=== PATIENT | male | born 1945 | race Caucasian/White ===

== ENCOUNTER 2017-09-27 12:39 | Inpatient (IN) | payer OTHER, BC ==
[~2017-09-27] VITALS: Ht 182.9 cm; Wt 93.7 kg
[2017-09-27] MEDS ORDERED: MECLIZINE HCL 25 MG TAB PO STA ×2 (12:54→15:25)
[2017-09-27] MEDS ORDERED: SODIUM CHLORIDE 0.9% 500ML 500 ML IV STA (12:54)
--- NOTE | 2017-09-27 13:10 | EMERGENCY ROOM VISIT NOTE ---
History Report prepared by Yin: Anurag Obrien Under the Supervision of: Dr. Stuart Lawson M.D. First contact with patient: 12:52 Chief Complaint: DIZZY Stated Complaint: DIZZY, SWEATING History of Present Illness The patient is a 72 year old male who presents to the Emergency Room with complaints of intermittent weakness, dizziness and diaphoresis beginning a couple days ago. Family reports that the patient had similar symptoms as early as last week. The family reports that during these episodes he appears dizzy and drenched in sweat with a runny nose and weakness. The patient notes that the symptoms become worse with movement. The patient states that he had severe headaches from March to May, and reports he had a cerebellar stroke detected by MRI on August 02. He followed up with his PCP and osteopathic physician, but never met with a neurologist. The patient denies chest pain. The patient reports that he take Meclizine for presumed vertigo. Source of History: patient, family Onset: a couple days ago Position: other (global) Quality: other (dizziness, weakness, diaphoresis) Timing: intermittent Modifying Factors (Worsening): movement Associated Symptoms: No chest pain Note: runny nose Review of Systems See HPI for pertinent positives and negatives. A total of ten systems were reviewed and were otherwise negative. Past Medical & Surgical Medical Problems: (1) Cerebellar stroke (2) Dizziness Social History Smoking Status: Never Smoker Current/Historical Medications Scheduled Acarbose (Precose), 25 MG PO AMPM Aspirin (Aspirin Ec), 81 MG PO QAM Atorvastatin (Lipitor), 80 MG PO QPM Clonazepam (Klonopin), 0.5 MG PO QAM Clopidogrel (Plavix), 75 MG PO QPM Dapagliflozin Propanediol (Farxiga), 5 MG PO QPM Glimepiride (Glimepiride), 2 MG PO AMPM Insulin Glargine (Basaglar Kwikpen), 25 UNITS SC QPM Metformin Hcl (Glucophage), 1,000 MG PO BID Nitroglycerin (Nitrostat), 0.4 MG UT PRN Scheduled PRN Meclizine Hcl (Meclizine Hcl), 1 TAB PO Q8 PRN for Dizziness or Vertigo Allergies Coded Allergies: No Known Allergies (Unverified , 09/27/17) Physical Exam Vital Signs Date Time Temp Pulse Resp B/P (MAP) Pulse Ox O2 Delivery O2 Flow Rate FiO2 09/27/17 18:29 59 16 155/80 97 Room Air 09/27/17 17:00 57 11 165/82 95 Room Air 09/27/17 16:09 57 10 09/27/17 16:01 176/85 09/27/17 15:39 61 17 09/27/17 15:31 168/87 09/27/17 14:32 162/79 09/27/17 14:30 66 20 162/79 99 Room Air 09/27/17 14:09 63 19 09/27/17 14:01 155/86 09/27/17 13:39 61 10 09/27/17 13:31 156/95 09/27/17 13:30 59 16 156/95 94 Room Air 09/27/17 13:17 63 09/27/17 13:14 160/81 09/27/17 12:43 36.6 58 18 160/77 99 Room Air Physical Exam GENERAL: Awake, alert, well-appearing, in no distress HENT: Normocephalic, atraumatic. Mucous membranes are dry. EYES: Normal conjunctiva. Sclera non-icteric. NECK: Supple. No nuchal rigidity. FROM. No JVD. RESPIRATORY: Clear to auscultation. CARDIAC: Regular rate, normal rhythm. Extremities warm and well perfused. Pulses equal. ABDOMEN: Soft, non-distended. No tenderness to palpation. No rebound or guarding. No masses. RECTAL: Deferred. MUSCULOSKELETAL: Chest examination reveals no tenderness. The back is symmetrical on inspection without obvious abnormality. There is no CVA tenderness to palpation. No joint edema. LOWER EXTREMITIES: Calves are equal size bilaterally and non-tender. No edema. No discoloration. NEURO: Normal sensorium. No sensory or motor deficits noted. Normal cerebellar function with cudosn-hq-[id number], alternating palms, rcun-eh-ploa. Mild horizontal nystagmus and vertigo when lying flat SKIN: No rash or jaundice noted. Medical Decision & Procedures ER Provider Diagnostic Interpretation: Radiology results as stated below per my review and radiologist interpretation: CT ANGIOGRAPHY OF THE NECK WITH CONTRAST CLINICAL HISTORY: Vertigo. COMPARISON STUDY: No previous studies for comparison. Technique: CT angiography of the carotid and vertebral arteries was obtained using benchee 320 IV and 3D reconstruction on an independent workstation. NASCET criteria was utilized. A dose lowering technique was utilized adhering to the principles of ALARA. Findings: Lung apices are clear. There is no cervical lymphadenopathy. A few partially calcified prevascular lymph nodes are likely benign. A few small thyroid nodules are noted. There is mild atherosclerotic plaque within the bilateral common carotid, internal carotid and vertebral arteries without significant stenosis within the neck. There is no dissection within these vessels. There is moderate atherosclerotic plaque within the intracranial portion of the right vertebral artery with moderate stenosis. The CT of the head will be reported separately. IMPRESSION: 1. No significant stenosis or dissection within the major vessels of the neck. 2. Moderate stenosis of the intracranial portion of the right vertebral artery. Electronically signed by: Zacarias Montes M.D. 09/27/2017 3:16 PM CHEST ONE VIEW PORTABLE HISTORY: Generalized abdominal pain. COMPARISON: None. FINDINGS: The lungs are clear. Cardiac silhouette is normal in size. No pleural effusions. No pneumothorax. IMPRESSION: No acute process. Electronically signed by: Luther Parmar M.D. 09/27/2017 2:11 PM ANGIOGRAPHY HEAD COMBO CLINICAL HISTORY: 72 years-old Male with . Presents with acute vertigo COMPARISON STUDY: CTA neck of same day TECHNIQUE: Unenhanced axial CT scan of the brain is performed. Subsequently, following the IV administration of 116 cc of Optiray 320, CT angiogram of the brain was performed from the skull base to the vertex. Images are reviewed in the axial, sagittal, and coronal planes. 3-D MIPS images are created and assessed. IV contrast was administered without complication. A dose lowering technique was utilized adhering to the principles of ALARA. CT DOSE: 1279.24 mGy.cm FINDINGS: CT BRAIN: No acute intracranial hemorrhage, midline shift, abnormal extra-axial collections, hydrocephalus or intracranial mass identified. Age-related involutional changes. Cerebral vascular calcifications are noted. Ill-defined low-attenuation about the periventricular white matter suggests chronic microvascular ischemic changes. Focal area of low-attenuation involving the right frontal lobe, 4.0 x 2.9 cm is noted on image 17 series 2 which suggests an area of encephalomalacia. 10 mm area of decreased attenuation about the inferior left lentiform nucleus on image 13 series 2. No calvarial fracture. Trace right mastoid effusion. Left mastoid air cells and bilateral middle ear cavities are generally clear. Mild mucosal thickening about the ethmoid air cells. Soft tissues and orbits appear unremarkable. CT ANGIOGRAM OF THE BRAIN: The imaged bilateral internal carotid arteries are patent. Calcifications are noted involving the cavernous and clinoid segments bilaterally. The bilateral anterior and middle cerebral arteries are also patent. The vertebrobasilar system and posterior cerebral arteries are widely patent. There is no aneurysm, high-grade stenosis, or proximal branch occlusion identified. Dural sinuses appear patent. IMPRESSION: 1. No acute intracranial hemorrhage, midline shift or territorial infarct. 2. No aneurysm, high-grade stenosis, dissection or proximal branch occlusion. 3. Focal area of low-attenuation about the right frontal lobe suggests encephalomalacia from remote infarction. Correlate with prior imaging. 4. 10 mm area of decreased attenuation about the inferior left lentiform nucleus suggests prominent perivascular space or age-indeterminate lacunar infarction. 5. Age-related involutional changes with suggested mild chronic microvascular ischemic changes. The above report was generated using voice recognition software. It may contain grammatical, syntax or spelling errors. Electronically signed by: Kvng Guzman M.D. 09/27/2017 3:10 PM Laboratory Results 09/27/17 13:20 Red Blood Count 4.91, Mean Corpuscular Volume 89.2, Mean Corpuscular Hemoglobin 31.2, Mean Corpuscular Hemoglobin Concent 34.9, Mean Platelet Volume 9.3, Neutrophils (%) (Auto) 80.4, Lymphocytes (%) (Auto) 13.7, Monocytes (%) (Auto) 5.1, Eosinophils (%) (Auto) 0.3, Basophils (%) (Auto) 0.1, Neutrophils # (Auto) 5.62, Lymphocytes # (Auto) 0.96, Monocytes # (Auto) 0.36, Eosinophils # (Auto) 0.02, Basophils # (Auto) 0.01 09/27/17 13:20 Test 09/27/17 13:20 09/27/17 13:36 White Blood Count 7.00 K/uL (4.8-10.8) Red Blood Count 4.91 M/uL (4.7-6.1) Hemoglobin 15.3 g/dL (14.0-18.0) Hematocrit 43.8 % (42-52) Mean Corpuscular Volume 89.2 fL (80-100) Mean Corpuscular Hemoglobin 31.2 pg (25-34) Mean Corpuscular Hemoglobin Concent 34.9 g/dl (32-36) Platelet Count 150 K/uL (130-400) Mean Platelet Volume 9.3 fL (7.4-10.4) Neutrophils (%) (Auto) 80.4 % Lymphocytes (%) (Auto) 13.7 % Monocytes (%) (Auto) 5.1 % Eosinophils (%) (Auto) 0.3 % Basophils (%) (Auto) 0.1 % Neutrophils # (Auto) 5.62 K/uL (1.4-6.5) Lymphocytes # (Auto) 0.96 K/uL (1.2-3.4) Monocytes # (Auto) 0.36 K/uL (0.11-0.59) Eosinophils # (Auto) 0.02 K/uL (0-0.5) Basophils # (Auto) 0.01 K/uL (0-0.2) RDW Standard Deviation 42.7 fL (36.4-46.3) RDW Coefficient of Variation 13.1 % (11.5-14.5) Immature Granulocyte % (Auto) 0.4 % Immature Granulocyte # (Auto) 0.03 K/uL (0.00-0.02) Anion Gap 5.0 mmol/L (3-11) Est Creatinine Clear Calc Drug Dose 87.6 ml/min Estimated GFR () 97.9 Estimated GFR (Non- 84.4 BUN/Creatinine Ratio 13.8 (10-20) Calcium Level 9.0 mg/dl (8.5-10.1) Magnesium Level 1.9 mg/dl (1.8-2.4) Total Bilirubin 0.7 mg/dl (0.2-1) Direct Bilirubin 0.2 mg/dl (0-0.2) Aspartate Amino Transf (AST/SGOT) 15 U/L (15-37) Alanine Aminotransferase (ALT/SGPT) 23 U/L (12-78) Alkaline Phosphatase 60 U/L (45-117) Troponin I < 0.015 ng/ml (0-0.045) Total Protein 7.1 gm/dl (6.4-8.2) Albumin 3.9 gm/dl (3.4-5.0) Lipase 88 U/L (73-393) Urine Color DK YELLOW Urine Appearance CLEAR (CLEAR) Urine pH 5.0 (4.5-7.5) Urine Specific Dickens 1.036 (1.000-1.030) Urine Protein TRACE (NEG) Urine Glucose (UA) 3+ (NEG) Urine Ketones TRACE (NEG) Urine Occult Blood NEG (NEG) Urine Nitrite NEG (NEG) Urine Bilirubin NEG (NEG) Urine Urobilinogen NEG (NEG) Urine Leukocyte Esterase NEG (NEG) Urine WBC (Auto) 1-5 /hpf (0-5) Urine RBC (Auto) 0-4 /hpf (0-4) Urine Hyaline Casts (Auto) 10-30 /lpf (0-5) Urine Epithelial Cells (Auto) 20-30 /lpf (0-5) Urine Bacteria (Auto) NEG (NEG) Laboratory results reviewed by me Medications Administered Medications (Trade) Dose Ordered Sig/Molly Route Start Time Stop Time Status Last Admin Dose Admin Sodium Chloride 500 ml @ 999 mls/hr Q31M STAT IV 09/27/17 12:54 09/27/17 13:24 DC 09/27/17 12:54 999 MLS/HR Meclizine HCl (Antivert Tab) 25 mg NOW STAT PO 09/27/17 12:54 09/27/17 13:04 DC 09/27/17 12:54 25 MG Meclizine HCl (Antivert Tab) 25 mg NOW STAT PO 09/27/17 15:25 09/27/17 15:27 DC 09/27/17 16:14 25 MG Lorazepam (Ativan Inj) 2 mg STK-MED ONCE .ROUTE 09/27/17 18:24 09/27/17 18:25 DC 09/27/17 18:28 1 MG ECG Per My Interpretation Indication: diaphoresis Rate (beats per minute): 58 Rhythm: sinus bradycardia Findings: no acute ischemic change, other (normal axis) Comparison ECG Date: no prior available ED Course 1253: The patient was evaluated in room C2B. A complete history and physical exam was performed. 1350: I updated the patient with results. 1531: I spoke with Dr. Mary Kirk - [facility] Hospitalist. She will reevaluate the patient for admission. Medical Decision I reviewed the patient's past medical history, medications, and the nursing notes as described above. Differential diagnosis: Etiologies such as metabolic, infection, hypo/hyperglycemia, electrolyte abnormalities, cardiac sources, intracerebral event, toxicologic, neurologic, as well as others were entertained. The patient is a 72-year-old gentleman with a past medical history of cerebellar CVA presented emergency department with persistent vertigo over the past several days while visiting [place] from their home town of [place] for the arts vest per hpi. On arrival the patient is in no acute distress, afebrile stable vital signs. He ambulates with a steady gait. He is neurologically intact including normal cerebellar function with [id number]-[id number], alternating palms, lprv-gg-ysnt. However, upon laying flat he begins to exhibit vertiginous symptoms with bilateral horizontal nystagmus. EKG unremarkable. Chest x-ray negative. CTA of the head and neck demonstrate areas of likely old frontal and lacunar infarcts. Patient feeling improved after IV fluids and meclizine, however still with intermittent mild vertigo. Unclear at this time whether the patient is exhibiting symptoms from a new cerebellar stroke versus locus minoris from his prior CVA in the setting of mild dehydration. However given the patient's prior history of CVA in particular cerebellar CVA is reasonable to admit the patient for full stroke rule out. Of note patient reports having to have procedural sedation to undergo MRI in the past. Patient agreeable with admission. Case was discussed with Dr. Mary Kirk, [facility] hospitalist, who will admit the patient for further management. Medication Reconcilliation Current Medication List: was personally reviewed by me Blood Pressure Screening Patient's blood pressure: Elevated blood pressure referred to hospitalist Consults Time Called: 1520 Consulting Physician: Dr. Mary Kirk - [facility] Hospitalist Returned Call: [address] Mary Kirk - [facility] Hospitalist. She will reevaluate the patient for admission. Impression Primary Impression: Vertigo Scribe Attestation The scribe's documentation has been prepared under my direction and personally reviewed by me in its entirety. I confirm that the note above accurately reflects all work, treatment, procedures, and medical decision making performed by me. Departure Information Dispostion Being Evaluated By Hospitalist Patient Instructions My [facility]
[2017-09-27] MEDS ORDERED: OPTIRAY 320 IV PRN (13:30)
[2017-09-27 13:31] LABS: BASO % 0.1 %; BASO ABS # 0.01 K/uL (0-0.2); EOS % 0.3 %; EOS ABS # 0.02 K/uL (0-0.5); HEMATOCRIT 43.8 % (42-52); HEMOGLOBIN 15.3 g/dL (14.0-18.0); IG# 0.03 K/uL (0.00-0.02); LYMPH % 13.7 %; LYMPH ABS # 0.96 K/uL (1.2-3.4); MEAN CELL VOLUME 89.2 fL (80-100); MEAN CORPUSCULAR HEMOGLOBIN 31.2 pg (25-34); MEAN CORPUSCULAR HGB CONC 34.9 g/dl (32-36); MEAN PLATELET VOLUME 9.3 fL (7.4-10.4); MONO % 5.1 %; MONO ABS # 0.36 K/uL (0.11-0.59); NEUT % 80.4 %; NEUT ABS # 5.62 K/uL (1.4-6.5); PLATELET COUNT 150 K/uL (130-400); RED CELL DISTRIBUTION WIDTH CV 13.1 % (11.5-14.5); RED CELL DISTRIBUTION WIDTH SD 42.7 fL (36.4-46.3)
[2017-09-27] MEDS ORDERED: ATOR-26 PO (13:45)
[2017-09-27] MEDS ORDERED: KLN/5 PO (13:45)
[2017-09-27] MEDS ORDERED: GLIM2TAB2 PO (13:45)
[2017-09-27] MEDS ORDERED: ACAR25TA PO (13:45)
[2017-09-27] MEDS ORDERED: METF-384 PO (13:45)
[2017-09-27] MEDS ORDERED: INSU100I23 SC (13:45)
[2017-09-27] MEDS ORDERED: DAPA1TAB8 PO (13:45)
[2017-09-27] MEDS ORDERED: CLOP1TAB15 PO (13:45)
[2017-09-27 13:58] LABS: ALBUMIN 3.9 gm/dl (3.4-5.0); ALKALINE PHOSPHATASE 60 U/L (45-117); ALT/SGPT 23 U/L (12-78); AST/SGOT 15 U/L (15-37); BLOOD UREA NITROGEN 12 mg/dl (7-18); CARBON DIOXIDE 30 mmol/L (21-32); GLUCOSE 142 mg/dl (70-99); LIPASE 88 U/L (73-393); POTASSIUM 4.3 mmol/L (3.5-5.1); SODIUM 142 mmol/L (136-145); TOTAL PROTEIN 7.1 gm/dl (6.4-8.2)
--- NOTE | 2017-09-27 14:12 | DIAGNOSTIC IMAGING REPORT ---
CHEST ONE VIEW PORTABLE HISTORY: Generalized abdominal pain. COMPARISON: None. FINDINGS: The lungs are clear. Cardiac silhouette is normal in size. No pleural effusions. No pneumothorax. IMPRESSION: No acute process. Electronically signed by: Luther Parmar M.D. 09/27/2017 2:11 PM Dictated Date/Time: 09/27/2017 2:09 PM
--- NOTE | 2017-09-27 15:11 | DIAGNOSTIC IMAGING REPORT ---
ANGIOGRAPHY HEAD COMBO CLINICAL HISTORY: 72 years-old Male with . Presents with acute vertigo COMPARISON STUDY: CTA neck of same day TECHNIQUE: Unenhanced axial CT scan of the brain is performed. Subsequently, following the IV administration of 116 cc of Optiray 320, CT angiogram of the brain was performed from the skull base to the vertex. Images are reviewed in the axial, sagittal, and coronal planes. 3-D MIPS images are created and assessed. IV contrast was administered without complication. A dose lowering technique was utilized adhering to the principles of ALARA. CT DOSE: 1279.24 mGy.cm FINDINGS: CT BRAIN: No acute intracranial hemorrhage, midline shift, abnormal extra-axial collections, hydrocephalus or intracranial mass identified. Age-related involutional changes. Cerebral vascular calcifications are noted. Ill-defined low-attenuation about the periventricular white matter suggests chronic microvascular ischemic changes. Focal area of low-attenuation involving the right frontal lobe, 4.0 x 2.9 cm is noted on image 17 series 2 which suggests an area of encephalomalacia. 10 mm area of decreased attenuation about the inferior left lentiform nucleus on image 13 series 2. No calvarial fracture. Trace right mastoid effusion. Left mastoid air cells and bilateral middle ear cavities are generally clear. Mild mucosal thickening about the ethmoid air cells. Soft tissues and orbits appear unremarkable. CT ANGIOGRAM OF THE BRAIN: The imaged bilateral internal carotid arteries are patent. Calcifications are noted involving the cavernous and clinoid segments bilaterally. The bilateral anterior and middle cerebral arteries are also patent. The vertebrobasilar system and posterior cerebral arteries are widely patent. There is no aneurysm, high-grade stenosis, or proximal branch occlusion identified. Dural sinuses appear patent. IMPRESSION: 1. No acute intracranial hemorrhage, midline shift or territorial infarct. 2. No aneurysm, high-grade stenosis, dissection or proximal branch occlusion. 3. Focal area of low-attenuation about the right frontal lobe suggests encephalomalacia from remote infarction. Correlate with prior imaging. 4. 10 mm area of decreased attenuation about the inferior left lentiform nucleus suggests prominent perivascular space or age-indeterminate lacunar infarction. 5. Age-related involutional changes with suggested mild chronic microvascular ischemic changes. The above report was generated using voice recognition software. It may contain grammatical, syntax or spelling errors. Electronically signed by: Kvng Guzman M.D. 09/27/2017 3:10 PM Dictated Date/Time: 09/27/2017 3:01 PM
--- NOTE | 2017-09-27 15:18 | DIAGNOSTIC IMAGING REPORT ---
CT ANGIOGRAPHY OF THE NECK WITH CONTRAST CLINICAL HISTORY: Vertigo. COMPARISON STUDY: No previous studies for comparison. Technique: CT angiography of the carotid and vertebral arteries was obtained using [employer] 320 IV and 3D reconstruction on an independent workstation. NASCET criteria was utilized. A dose lowering technique was utilized adhering to the principles of ALARA. Findings: Lung apices are clear. There is no cervical lymphadenopathy. A few partially calcified prevascular lymph nodes are likely benign. A few small thyroid nodules are noted. There is mild atherosclerotic plaque within the bilateral common carotid, internal carotid and vertebral arteries without significant stenosis within the neck. There is no dissection within these vessels. There is moderate atherosclerotic plaque within the intracranial portion of the right vertebral artery with moderate stenosis. The CT of the head will be reported separately. IMPRESSION: 1. No significant stenosis or dissection within the major vessels of the neck. 2. Moderate stenosis of the intracranial portion of the right vertebral artery. Electronically signed by: Zacarias Montes M.D. 09/27/2017 3:16 PM Dictated Date/Time: 09/27/2017 3:11 PM
[2017-09-27] MEDS ORDERED: NTRGSL/4 UT (16:36)
[2017-09-27] MEDS ORDERED: ASPI81TA28 PO (16:36)
[2017-09-27] MEDS ORDERED: MECL1TAB42 PO (16:36)
--- NOTE | 2017-09-27 17:13 | History and Physical ---
History & Physical Date & Time of Service: Sep 27, 2017 at 16:44 Chief Complaint: Dizzy, Sweating Primary Care Physician: No Doctor, Assigned History of Present Illness Source: patient, family 72 yo male from [place] was visiting [place] for the [employer] [place]. Patient is a poor historian as he switches topics very easily. Patient drove about 170 miles that day. Patient however has been having episodes of dizziness for the past 4 months. He reports that these episodes last about a few seconds. He was diagnosed in July at [facility] with a cerrebellar stroke. However he did not followup with Neurology as an outpatient due to an emergency at home. Patient reports for the past 2 weeks he has been having more severe episodes of dizziness, and notices that this occurs when he moves his head side to side, or if he bends over. His states that he has also been unsteady on his feet. On Monday, he had an episode of diarrhea, nausea, and looked pale. This was after an episode of dizziness. Since then he has had episodes of dizziness have continued which is why patient presented to the ER. ER department is concerned that he may have another stroke which is why they called for an admission. notes that since his stroke, he has had a different personality. Past Medical/Surgical History PMH: Cerebellar stroke in July 2017 Diabetes M. II History of multiple Myocardial infarctions first occurred when he was 54. PSH: History of cholecystectomy. Family History Patient has family history of coronary artery disease in his mother, father, brother. All of them have had Myocardial infarctions However, none were premature. Social History Smoking Status: Never Smoker Smokeless Tobacco Use: No Alcohol Use: none Drug Use: none Marital Status: Housing status: lives with significant other Occupational Status: retired Immunizations History of Influenza Vaccine: Yes History of Tetanus Vaccine?: Yes History of Pneumococcal: Yes History of Hepatitis B Vaccine: Yes Allergies Coded Allergies: No Known Allergies (Unverified , 09/27/17) Home Medications Scheduled Acarbose (Precose), 25 MG PO AMPM Aspirin (Aspirin Ec), 81 MG PO QAM Atorvastatin (Lipitor), 80 MG PO QPM Clonazepam (Klonopin), 0.5 MG PO QAM Clopidogrel (Plavix), 75 MG PO QPM Dapagliflozin Propanediol (Farxiga), 5 MG PO QPM Glimepiride (Glimepiride), 2 MG PO AMPM Insulin Glargine (Basaglar Kwikpen), 25 UNITS SC QPM Metformin Hcl (Glucophage), 1,000 MG PO BID Nitroglycerin (Nitrostat), 0.4 MG UT PRN Scheduled PRN Meclizine Hcl (Meclizine Hcl), 1 TAB PO Q8 PRN for Dizziness or Vertigo Review of Systems Constitutional: No fever, No chills Eyes: No worsening of vision ENT: No hearing loss Respiratory: No cough Cardiovascular: No chest pain Abdomen: No pain Musculoskeletal: No joint pain Genitourinary - Male: No hematuria Neurologic: + vertigo Psychiatric: No depression symptoms Endocrine: No fatigue Hematologic / Lymphatic: No abnormal bleeding/bruising Integumentary: No rash Allergic / Immunologic: No environmental allergies Physical Exam Vital Signs Date Time Temp Pulse Resp B/P (MAP) Pulse Ox O2 Delivery O2 Flow Rate FiO2 09/27/17 16:09 57 10 09/27/17 16:01 176/85 09/27/17 15:39 61 17 09/27/17 15:31 168/87 09/27/17 14:32 162/79 09/27/17 14:30 66 20 162/79 99 Room Air 09/27/17 14:09 63 19 09/27/17 14:01 155/86 09/27/17 13:39 61 10 09/27/17 13:31 156/95 09/27/17 13:30 59 16 156/95 94 Room Air 09/27/17 13:17 63 09/27/17 13:14 160/81 09/27/17 12:43 36.6 58 18 160/77 99 Room Air General Appearance: WD/WN, no apparent distress Head: normocephalic Eyes: normal inspection, + pertinent finding (no nystagmus noted) ENT: normal ENT inspection, hearing grossly normal Neck: supple, no adenopathy Respiratory/Chest: chest non-tender, lungs clear, normal breath sounds Cardiovascular: regular rate, rhythm, no edema Abdomen/GI: normal bowel sounds, non tender, soft Back: normal inspection Extremities/Musculoskelatal: normal inspection Neurologic/Psych: occupational medicine specialist II-XII nml as tested, alert, oriented x 3 Skin: normal color Lymphatic: no adenopathy Diagnostics Laboratory Results Results Past 24 Hours Test 09/27/17 13:20 09/27/17 13:36 Range/Units White Blood Count 7.00 4.8-10.8 K/uL Red Blood Count 4.91 4.7-6.1 M/uL Hemoglobin 15.3 14.0-18.0 g/dL Hematocrit 43.8 42-52 % Mean Corpuscular Volume 89.2 80-100 fL Mean Corpuscular Hemoglobin 31.2 25-34 pg Mean Corpuscular Hemoglobin Concent 34.9 32-36 g/dl Platelet Count 150 130-400 K/uL Mean Platelet Volume 9.3 7.4-10.4 fL Neutrophils (%) (Auto) 80.4 % Lymphocytes (%) (Auto) 13.7 % Monocytes (%) (Auto) 5.1 % Eosinophils (%) (Auto) 0.3 % Basophils (%) (Auto) 0.1 % Neutrophils # (Auto) 5.62 1.4-6.5 K/uL Lymphocytes # (Auto) 0.96 1.2-3.4 K/uL Monocytes # (Auto) 0.36 0.11-0.59 K/uL Eosinophils # (Auto) 0.02 0-0.5 K/uL Basophils # (Auto) 0.01 0-0.2 K/uL RDW Standard Deviation 42.7 36.4-46.3 fL RDW Coefficient of Variation 13.1 11.5-14.5 % Immature Granulocyte % (Auto) 0.4 % Immature Granulocyte # (Auto) 0.03 0.00-0.02 K/uL Sodium Level 142 136-145 mmol/L Potassium Level 4.3 3.5-5.1 mmol/L Chloride Level 107 98-107 mmol/L Carbon Dioxide Level 30 21-32 mmol/L Anion Gap 5.0 3-11 mmol/L Blood Urea Nitrogen 12 7-18 mg/dl Creatinine 0.90 0.60-1.40 mg/dl Est Creatinine Clear Calc Drug Dose 87.6 ml/min Estimated GFR () 97.9 Estimated GFR (Non- 84.4 BUN/Creatinine Ratio 13.8 10-20 Random Glucose 142 70-99 mg/dl Calcium Level 9.0 8.5-10.1 mg/dl Magnesium Level 1.9 1.8-2.4 mg/dl Total Bilirubin 0.7 0.2-1 mg/dl Direct Bilirubin 0.2 0-0.2 mg/dl Aspartate Amino Transf (AST/SGOT) 15 15-37 U/L Alanine Aminotransferase (ALT/SGPT) 23 12-78 U/L Alkaline Phosphatase 60 45-117 U/L Troponin I < 0.015 0-0.045 ng/ml Total Protein 7.1 6.4-8.2 gm/dl Albumin 3.9 3.4-5.0 gm/dl Lipase 88 73-393 U/L Urine Color DK YELLOW Urine Appearance CLEAR CLEAR Urine pH 5.0 4.5-7.5 Urine Specific Webster 1.036 1.000-1.030 Urine Protein TRACE NEG Urine Glucose (UA) 3+ NEG Urine Ketones TRACE NEG Urine Occult Blood NEG NEG Urine Nitrite NEG NEG Urine Bilirubin NEG NEG Urine Urobilinogen NEG NEG Urine Leukocyte Esterase NEG NEG Urine WBC (Auto) 1-5 0-5 /hpf Urine RBC (Auto) 0-4 0-4 /hpf Urine Hyaline Casts (Auto) 10-30 0-5 /lpf Urine Epithelial Cells (Auto) 20-30 0-5 /lpf Urine Bacteria (Auto) NEG NEG ANGIOGRAPHY HEAD COMBO CLINICAL HISTORY: 72 years-old Male with . Presents with acute vertigo COMPARISON STUDY: CTA neck of same day TECHNIQUE: Unenhanced axial CT scan of the brain is performed. Subsequently, following the IV administration of 116 cc of Optiray 320, CT angiogram of the brain was performed from the skull base to the vertex. Images are reviewed in the axial, sagittal, and coronal planes. 3-D MIPS images are created and assessed. IV contrast was administered without complication. A dose lowering technique was utilized adhering to the principles of ALARA. CT DOSE: 1279.24 mGy.cm FINDINGS: CT BRAIN: No acute intracranial hemorrhage, midline shift, abnormal extra-axial collections, hydrocephalus or intracranial mass identified. Age-related involutional changes. Cerebral vascular calcifications are noted. Ill-defined low-attenuation about the periventricular white matter suggests chronic microvascular ischemic changes. Focal area of low-attenuation involving the right frontal lobe, 4.0 x 2.9 cm is noted on image 17 series 2 which suggests an area of encephalomalacia. 10 mm area of decreased attenuation about the inferior left lentiform nucleus on image 13 series 2. No calvarial fracture. Trace right mastoid effusion. Left mastoid air cells and bilateral middle ear cavities are generally clear. Mild mucosal thickening about the ethmoid air cells. Soft tissues and orbits appear unremarkable. CT ANGIOGRAM OF THE BRAIN: The imaged bilateral internal carotid arteries are patent. Calcifications are noted involving the cavernous and clinoid segments bilaterally. The bilateral anterior and middle cerebral arteries are also patent. The vertebrobasilar system and posterior cerebral arteries are widely patent. There is no aneurysm, high-grade stenosis, or proximal branch occlusion identified. Dural sinuses appear patent. IMPRESSION: 1. No acute intracranial hemorrhage, midline shift or territorial infarct. 2. No aneurysm, high-grade stenosis, dissection or proximal branch occlusion. 3. Focal area of low-attenuation about the right frontal lobe suggests encephalomalacia from remote infarction. Correlate with prior imaging. 4. 10 mm area of decreased attenuation about the inferior left lentiform nucleus suggests prominent perivascular space or age-indeterminate lacunar infarction. 5. Age-related involutional changes with suggested mild chronic microvascular ischemic changes. CT ANGIOGRAPHY OF THE NECK WITH CONTRAST CLINICAL HISTORY: Vertigo. COMPARISON STUDY: No previous studies for comparison. Technique: CT angiography of the carotid and vertebral arteries was obtained using OptiraKontagent 320 IV and 3D reconstruction on an independent workstation. NASCET criteria was utilized. A dose lowering technique was utilized adhering to the principles of ALARA. Findings: Lung apices are clear. There is no cervical lymphadenopathy. A few partially calcified prevascular lymph nodes are likely benign. A few small thyroid nodules are noted. There is mild atherosclerotic plaque within the bilateral common carotid, internal carotid and vertebral arteries without significant stenosis within the neck. There is no dissection within these vessels. There is moderate atherosclerotic plaque within the intracranial portion of the right vertebral artery with moderate stenosis. The CT of the head will be reported separately. IMPRESSION: 1. No significant stenosis or dissection within the major vessels of the neck. 2. Moderate stenosis of the intracranial portion of the right vertebral artery. Diagnostic Radiology CHEST ONE VIEW PORTABLE HISTORY: Generalized abdominal pain. COMPARISON: None. FINDINGS: The lungs are clear. Cardiac silhouette is normal in size. No pleural effusions. No pneumothorax. IMPRESSION: No acute process. EKG Sinus bradycardia Low voltage QRS Abnormal ECG No previous ECGs available Confirmed by Juliano Headley ([id number]) on 09/27/2017 4:49:37 PM Impression Assessment and Plan Worsening vertigo and dizziness in a 72 yo male with history fo a stroke just 3 months ago diagnosed at an outside facility. Admit under obs to tele. Will obtain MRI of brain. If cerebellar stroke in past is correct, then this can likely explain his vertigo. Patient also describes symptoms where his they worsened with moving his head. Due to patient being a poor historian, unsure if patient really has worsening or not of his dizziness. It does sound like BPPV can be a strong possibility. Patient will likely benefit from following with Neurology as an outpatient. Due to claustrophobia, will order ativan prior to imaging. Diabetes Mellitus II Will restart his insulin, hold oral meds. Consult glycemic control H/O Coronary artery disease. will restart his meds H/O stroke will restart his home meds. Advanced Directives Existing Advance Directive: No Existing Living Will: No Existing Power of Hospital Sales Representative: No Existing Health Care Proxy: No Resuscitation Status VTE Prophylaxis Will order VTE Prophylaxis: Yes
[2017-09-27] MEDS ORDERED: MECLIZINE HCL 25 MG TAB PO PRN (17:30)
[2017-09-27] MEDS ORDERED: DEXTROSE 50% 50 ML SYR IV PRN (17:30)
[2017-09-27] MEDS ORDERED: GLUCOSE 40% GEL 15 GM TUBE PO PRN (17:30)
[2017-09-27] MEDS ORDERED: GLUCOSE 10 TABS/TUBE PO PRN (17:30)
[2017-09-27] MEDS ORDERED: NITROGLYCERIN 0.4 MG SL PER TAB CHARGE UT SCH (17:30)
[2017-09-27] MEDS ORDERED: GLUCAGON FOR INJ 1 MG VIAL SQ PRN (17:30)
[2017-09-27] MEDS ORDERED: CARBOHYDRATES FOR HYPOGLYCEMIA PO PRN (17:30)
[2017-09-27] MEDS ORDERED: LORAZEPAM 2 MG/ML 1 ML VIAL IV STA (18:19)
[2017-09-27] MEDS ORDERED: LORAZEPAM 2 MG/ML 1 ML VIAL ONE (18:24)
[2017-09-27] MEDS ORDERED: PHARMACY GLYCEMIC MGMT CONSULT PRN (18:25)
--- NOTE | 2017-09-27 19:58 | DIAGNOSTIC IMAGING REPORT ---
BRAIN WITHOUT CONTRAST HISTORY: Mental status change h/o cerebellar stroke/ worsening balance. TECHNIQUE: Multiplanar multisequence MRI of the brain was performed without the use of contrast. COMPARISON STUDY: None. FINDINGS: Old right frontal infarct. Small acute right periventricular infarct involving the right basal ganglia. Moderate chronic small vessel change throughout both cerebral hemispheres. Ventricular system is midline. Increased signal on T1 about the area of acute ischemic change may suggest a small petechial hemorrhagic component. IMPRESSION: 1. Old right frontal infarct. 2. Small right periventricular infarct with a small associated petechial hemorrhagic component. 3. Atrophy and chronic small vessel change of aging. The above report was generated using voice recognition software. It may contain grammatical, syntax or spelling errors. Electronically signed by: Eugene Romeo M.D. 09/27/2017 7:56 PM Dictated Date/Time: 09/27/2017 7:52 PM
[2017-09-27 20:30] VITALS: BP_SYST 142; BP_SYST 155; BP_DIAS 80; BP_DIAS 87; PULSE 62; TEMP 36.5; TEMP 36.6; O2SAT 96; Ht 182.9 cm; Wt 93.7 kg
[2017-09-27] MEDS ORDERED: ATORVASTATIN 40 MG TAB PO SCH (21:00)
[2017-09-27] MEDS ORDERED: CLOPIDOGREL BISULFATE 75 MG TAB PO SCH (21:00)
[2017-09-27] MEDS ORDERED: ENOXAPARIN 40 MG/0.4 ML SYR SC SCH (21:00)
[2017-09-27] MEDS ORDERED: INSULIN GLARGINE SOLOSTAR 100 UNITS/ML 3 ML PEN SC SCH ×2 (21:00)
[2017-09-27 21:07] LABS: PTT PATIENT 27.4 SECONDS (21.0-31.0)
[2017-09-27] MEDS: INSULIN ASPART 100 UNITS/ML 3 ML PEN SC SCH (21:38)
[2017-09-27] MEDS ORDERED: IV FLUIDS COMPLETED PRN (23:00)
[2017-09-27 23:12] VITALS: BP 117/64; PULSE 57; TEMP 36.4; O2SAT 95
[2017-09-28] VITALS (7 sets, daily range): BP systolic 116–133; BP diastolic 51–74; PULSE 53–67; TEMP 36.5–36.8; O2SAT 95–99
[2017-09-28] MEDS: INSULIN ASPART 100 UNITS/ML 3 ML PEN SC SCH ×2 (08:45→12:54)
--- NOTE | 2017-09-28 08:53 | Pharmacy Progress Note ---
Glycemic Control Intl Consult Date of Service Sep 28, 2017. Scope Glycemic Pharmacist consulted by Dr Friedman on 09/27/17 for glycemic control and to write orders per [facility] inpatient glycemic control protocol Objective Weight (Kilograms): 93.700 Accuchecks BSG (last 24hrs): Test 09/27/17 13:20 09/27/17 21:34 09/28/17 07:23 Random Glucose 142 mg/dl (70-99) Bedside Glucose 212 mg/dl (70-99) 132 mg/dl (70-99) Laboratory Data (last 24hrs) Test 09/27/17 13:20 Anion Gap 5.0 mmol/L BUN/Creatinine Ratio 13.8 Blood Urea Nitrogen 12 mg/dl Creatinine 0.90 mg/dl Potassium Level 4.3 mmol/L Sodium Level 142 mmol/L White Blood Count 7.00 K/uL Red Blood Count 4.91 M/uL Hemoglobin 15.3 g/dL Hematocrit 43.8 % Mean Corpuscular Volume 89.2 fL Mean Corpuscular Hemoglobin 31.2 pg Mean Corpuscular Hemoglobin Concent 34.9 g/dl Platelet Count 150 K/uL Mean Platelet Volume 9.3 fL Neutrophils (%) (Auto) 80.4 % Lymphocytes (%) (Auto) 13.7 % Monocytes (%) (Auto) 5.1 % Eosinophils (%) (Auto) 0.3 % Basophils (%) (Auto) 0.1 % Neutrophils # (Auto) 5.62 K/uL Lymphocytes # (Auto) 0.96 K/uL Monocytes # (Auto) 0.36 K/uL Eosinophils # (Auto) 0.02 K/uL Basophils # (Auto) 0.01 K/uL Recent Pertinent Medications Outpatient Anti-diabetic Regimen: * Lantus 25 units HS * Metformin 1 g PO BID * Glimepiride 2mg PO BID * Acarbose 25mg PO BID * Dapagliflozin 5mg QAM * A1c unknown, on order for 09/29 with AM labs The patient is currently receiving: * Basal insulin: Lantus 18 units every 24 hours * Correctional Insulin: Novolog Correction per scale ACHS Goal Range: Low 110 mg/dL - High 140 mg/dL Correction Factor: 25 mg/dL/unit * Prandial insulin: Per carb ratio of 1 unit per 8 grams CHO consumed * Oral Agents: On Hold Risk Factors for Insulin Resistance: * Diet: AHA Assessment & Plan ASSESSMENT: * 72 year old male from [facility] visiting for [facility], admitted with dizziness/vertigo, Stroke 3 months ago, w/o neurology follow-up * Hyperglycemic (212mg/dl) last evening when consulted, started on basal bolus insulin last evening by second shift pharmacist, BSG at goal this morning, continue current regimen. * Pt is maintained on oral antidiabetic agents as an outpatient * Oral agents are not recommended for inpatient use d/t drug interactions, changing PO intake, and difficulty titrating for acute hyper/hypoglycemia. ADA recommends re-initiating outpatient oral agents 1-2 days prior to discharge if/ when appropriate if they were held on admission. * Will hold oral agents for admission and utilize SQ basal bolus insulin regimen which is the recommended regimen for inpatient glycemic control. * ADA & AACE recommend a goal blood sugar range 140-180 mg/dl for the majority of critically ill & non-critically ill patients. However, more stringent targets may be selected in individual cases. Will utilize more stringent goal of 110-140mg/dl based on patient age & comorbidities. Additionally, tighter glycemic control is warranted to facilitate wound/infection healing. PLAN FOR INPATIENT GLYCEMIC CONTROL: * Holding outpatient oral diabetes medications * Basal insulin with LANTUS 18 units SQ HS * Correctional Insulin with NOVOLOG per scale ACHS or Q6hrs while NPO * Goal Range: Low 110 mg/dL - High 140 mg/dL * Correction Factor: 25 mg/dL/unit * Nutritional / Prandial insulin per carb ratio of 1 unit per 8 grams CHO consumed * Please note that the plan above was derived based on current level of insulin resistance and hospital stress. These recommendations are appropriate for inpatient admission only. Plan of care upon discharge will need to be reassessed to avoid potential outpatient hypo/hyperglycemia. Thank you.
[2017-09-28] MEDS ORDERED: CLONAZEPAM 0.5 MG TAB PO SCH (09:00)
[2017-09-28] MEDS ORDERED: ASPIRIN 81 MG ECTAB PO SCH (09:00)
--- NOTE | 2017-09-28 09:59 | Neurology Consultation ---
Neurology Consultation Date of Consultation: Sep 28, 2017. Attending Physician: Graham Friedman M.D. Primary Care Physician: No Doctor, Assigned Reason for Consultation: Stroke History of Present Illness Source: patient, hospital records The patient is a 72-year-old male who complains of episodic dizziness, weakness , and diaphoresis which has been occurring intermittently over the past few days although he recalls having similar symptoms last week. He currently denies any particular triggering or alleviating factors. He also had been complaining of a rather severe headache earlier this year. This issue has resolved. Currently, the patient reports that he feels well and does not have any particular symptoms. Past medical history notable for a stroke diagnosed at another hospital in July of this year without any apparent residual neurologic deficits. 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 The patient has been taking both aspirin and Plavix for several years. History also notable for myocardial infarction. A CT of the head completed in the emergency department revealed a chronic right frontal infarct. A CTA of the head was unremarkable. 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 A serum glucose was 142. An electrocardiogram reveals sinus bradycardia, 58 beats per minute. A brain MRI revealed a chronic right frontal infarct as well as a small, acute, right periventricular infarct with a small amount of associated petechial hemorrhage. I reviewed the images as well as the radiologist's interpretation of this test. Past Medical/Surgical History Medical Problems: (1) Vertigo Status: Acute Family History Coronary artery disease and myocardial infarction in several immediate family members. Social History Patient is from out of town, currently visiting for arts festival. Smokeless Tobacco Use: No Alcohol Use: none Drug Use: none Marital Status: Occupation Status: retired Allergies Coded Allergies: No Known Allergies (Unverified , 09/27/17) Current Inpatient Medications Current Inpatient Medications Medications (Trade) Dose Ordered Sig/Molly Route Start Time Stop Time Status Last Admin Dose Admin Ioversol (Optiray 320) 111 ml UD PRN IV 09/27/17 13:30 10/01/17 13:29 Aspirin (Ecotrin Tab) 81 mg QAM PO 09/28/17 09:00 10/28/17 08:59 09/28/17 08:37 81 MG Atorvastatin Calcium (Lipitor Tab) 80 mg QPM PO 09/27/17 21:00 10/27/17 20:59 09/27/17 21:30 80 MG Clonazepam (Klonopin Tab) 0.5 mg QAM PO 09/28/17 09:00 10/28/17 08:59 09/28/17 08:48 0.5 MG Clopidogrel Bisulfate (plAVix TAB) 75 mg QPM PO 09/27/17 21:00 10/27/17 20:59 09/27/17 21:30 75 MG Meclizine HCl (Antivert Tab) 25 mg Q8 PRN PO 09/27/17 17:30 10/27/17 17:29 09/28/17 08:37 25 MG Nitroglycerin (Nitrostat Tab) 0.4 mg PRN UT 09/27/17 17:30 10/27/17 17:29 Glucose (Glucose 40% Gel) 15-30 GRAMS 15 GRAMS... UD PRN PO 09/27/17 17:30 10/27/17 17:29 Glucose (Glucose Chew Tab) 4-8 Tablets 4 Tabl... UD PRN PO 09/27/17 17:30 10/27/17 17:29 Dextrose (Dextrose 50% 50ML Syringe) 25-50ML 25ML FOR ... UD PRN IV 09/27/17 17:30 10/27/17 17:29 Glucagon (Glucagon Inj) 1 mg UD PRN SQ 09/27/17 17:30 10/27/17 17:29 Carbohydrates (Carbohydrates For Hypoglycemia) 15-30 GRAMS 15 grams if BSG 54-69... UD PRN PO 09/27/17 17:30 10/27/17 17:29 Miscellaneous Information (Consult Glycemic Management Pharmacy) 1 ea UD PRN N/A 09/27/17 18:25 10/27/17 18:24 Insulin Glargine (Lantus Solostar Pen) 18 units QPM SC 09/27/17 21:00 10/27/17 20:59 09/27/17 21:35 18 UNITS Insulin Aspart (novoLOG ASPART) SLIDING SCALE G... ACHS SC 09/27/17 21:00 10/27/17 20:59 09/28/17 08:45 3 UNITS Miscellaneous (Iv Fluids Completed) 1 ea PRN PRN N/A 09/27/17 23:00 09/27/18 22:59 Review of Systems Constitutional: No fever chills Eyes: No vision loss or diplopia ENT: No vertigo or hearing loss Cardiovascular: No chest pain or palpitations Respiratory: No cough or shortness of breath Musculoskeletal: No myalgia or arthralgia Neurological: As per history of present illness Hematologic: No abnormal bleeding or swollen glands A full 10 point review of systems was obtained from this patient with pertinent positives and negatives described in the history of present illness and otherwise listed above. All remaining systems were reviewed and are negative. Physical Exam Vital Signs (Past 24 Hrs): Date Time Temp Pulse Resp B/P (MAP) Pulse Ox O2 Delivery O2 Flow Rate FiO2 09/28/17 07:03 36.5 53 16 131/74 (93) 97 Room Air 09/28/17 04:41 36.7 56 56 116/62 (80) 95 Room Air 09/28/17 00:34 36.8 67 18 133/53 (79) 95 Room Air 09/28/17 00:00 Room Air 09/27/17 23:12 36.4 57 18 117/64 (81) 95 Room Air 09/27/17 20:30 36.5 62 16 142/87 Room Air 09/27/17 20:30 36.5 62 16 142/87 (105) 96 Room Air 09/27/17 18:29 59 16 155/80 97 Room Air 09/27/17 17:00 57 11 165/82 95 Room Air 09/27/17 16:09 57 10 09/27/17 16:01 176/85 09/27/17 15:39 61 17 09/27/17 15:31 168/87 09/27/17 14:32 162/79 09/27/17 14:30 66 20 162/79 99 Room Air 09/27/17 14:09 63 19 09/27/17 14:01 155/86 09/27/17 13:39 61 10 09/27/17 13:31 156/95 09/27/17 13:30 59 16 156/95 94 Room Air 09/27/17 13:17 63 09/27/17 13:14 160/81 09/27/17 12:43 36.6 58 18 160/77 99 Room Air Patient is a well-developed, well-nourished elderly male. He is alert and fully oriented. Processing speed seems somewhat slow. Recent and remote memory intact. Attention and concentration are normal. Patient exhibits a normal spontaneous speech pattern. He is able to name objects and repeat phrases. He exhibits an age-appropriate fund of knowledge a normal vocabulary. Visual chase full to confrontation. Visual acuity normal. Pupils equal round reactive to light and accommodation. Eye movements normal. There is no nystagmus. Facial sensation intact. There is normal facial symmetry and strength. Hearing intact bilaterally. Palate elevates to midline. Shoulder shrug intact. Tongue protrudes to midline. Sensation intact to all modalities in all 4 limbs. Deep tendon reflexes are intact and symmetrical for the arms and legs. Plantar responses equivocal bilaterally. There is no dysdiadochokinesia or dysmetria of [id number] or heel to garcia bilaterally. Ophthalmoscopic examination reveals normal-appearing optic discs and posterior segments. No papilledema or hemorrhages. Carotid pulses normal bilaterally, no bruits to auscultation. Gait and station normal. Patient exhibits normal muscle strength and tone for all 4 limbs. No atrophy. No abnormal movements observed. Laboratory Results Past 24 Hours: 09/27/17 13:20 Red Blood Count 4.91, Mean Corpuscular Volume 89.2, Mean Corpuscular Hemoglobin 31.2, Mean Corpuscular Hemoglobin Concent 34.9, Mean Platelet Volume 9.3, Neutrophils (%) (Auto) 80.4, Lymphocytes (%) (Auto) 13.7, Monocytes (%) (Auto) 5.1, Eosinophils (%) (Auto) 0.3, Basophils (%) (Auto) 0.1, Neutrophils # (Auto) 5.62, Lymphocytes # (Auto) 0.96, Monocytes # (Auto) 0.36, Eosinophils # (Auto) 0.02, Basophils # (Auto) 0.01 09/27/17 13:20 Test 09/27/17 13:20 09/27/17 13:36 09/28/17 07:23 White Blood Count 7.00 K/uL (4.8-10.8) Red Blood Count 4.91 M/uL (4.7-6.1) Hemoglobin 15.3 g/dL (14.0-18.0) Hematocrit 43.8 % (42-52) Mean Corpuscular Volume 89.2 fL (80-100) Mean Corpuscular Hemoglobin 31.2 pg (25-34) Mean Corpuscular Hemoglobin Concent 34.9 g/dl (32-36) Platelet Count 150 K/uL (130-400) Mean Platelet Volume 9.3 fL (7.4-10.4) Neutrophils (%) (Auto) 80.4 % Lymphocytes (%) (Auto) 13.7 % Monocytes (%) (Auto) 5.1 % Eosinophils (%) (Auto) 0.3 % Basophils (%) (Auto) 0.1 % Neutrophils # (Auto) 5.62 K/uL (1.4-6.5) Lymphocytes # (Auto) 0.96 K/uL (1.2-3.4) Monocytes # (Auto) 0.36 K/uL (0.11-0.59) Eosinophils # (Auto) 0.02 K/uL (0-0.5) Basophils # (Auto) 0.01 K/uL (0-0.2) RDW Standard Deviation 42.7 fL (36.4-46.3) RDW Coefficient of Variation 13.1 % (11.5-14.5) Immature Granulocyte % (Auto) 0.4 % Immature Granulocyte # (Auto) 0.03 K/uL (0.00-0.02) Prothrombin Time 10.9 SECONDS (9.0-12.0) Prothromb Time International Ratio 1.0 (0.9-1.1) Activated Partial Thromboplast Time 27.4 SECONDS (21.0-31.0) Partial Thromboplastin Ratio 1.1 Anion Gap 5.0 mmol/L (3-11) Est Creatinine Clear Calc Drug Dose 87.6 ml/min Estimated GFR () 97.9 Estimated GFR (Non- 84.4 BUN/Creatinine Ratio 13.8 (10-20) Calcium Level 9.0 mg/dl (8.5-10.1) Magnesium Level 1.9 mg/dl (1.8-2.4) Total Bilirubin 0.7 mg/dl (0.2-1) Direct Bilirubin 0.2 mg/dl (0-0.2) Aspartate Amino Transf (AST/SGOT) 15 U/L (15-37) Alanine Aminotransferase (ALT/SGPT) 23 U/L (12-78) Alkaline Phosphatase 60 U/L (45-117) Troponin I < 0.015 ng/ml (0-0.045) Total Protein 7.1 gm/dl (6.4-8.2) Albumin 3.9 gm/dl (3.4-5.0) Lipase 88 U/L (73-393) Urine Color DK YELLOW Urine Appearance CLEAR (CLEAR) Urine pH 5.0 (4.5-7.5) Urine Specific [place] 1.036 (1.000-1.030) Urine Protein TRACE (NEG) Urine Glucose (UA) 3+ (NEG) Urine Ketones TRACE (NEG) Urine Occult Blood NEG (NEG) Urine Nitrite NEG (NEG) Urine Bilirubin NEG (NEG) Urine Urobilinogen NEG (NEG) Urine Leukocyte Esterase NEG (NEG) Urine WBC (Auto) 1-5 /hpf (0-5) Urine RBC (Auto) 0-4 /hpf (0-4) Urine Hyaline Casts (Auto) 10-30 /lpf (0-5) Urine Epithelial Cells (Auto) 20-30 /lpf (0-5) Urine Bacteria (Auto) NEG (NEG) Bedside Glucose 132 mg/dl (70-99) Impression Acute, small, right periventricular ischemic infarct with a small degree of associated petechial hemorrhage as observed on MRI. This patient does not appear to have any neurologic deficits related to this acute abnormality. He presented in a somewhat nonspecific fashion with episodic dizziness, weakness, and diaphoresis and with a reported history of a recent cerebellar stroke. His imaging also reveals a chronic right frontal stroke. Cardioembolism is not completely excluded although there does not appear to be any evidence of atrial fibrillation. Plan Continue with aspirin and Plavix which this patient has been taking long-term in light of his history of multivessel coronary artery disease. Please order a transthoracic echocardiogram with bubble study. Continue Lipitor. This patient will need to follow up with his primary care physician for ongoing management of his diabetes mellitus and coronary artery disease. He will need to follow up with a neurologist when she returns home as well. Please contact me if I may be of further assistance.
[2017-09-28] MEDS ORDERED: PHARMACIST DISCHARGE MED REC CONSULT PRN (10:30)
--- NOTE | 2017-09-28 15:36 | ECHOCARDIOGRAM REPORT ---
*NOTICE TO RECEIVING LIBERTARIAN AGENCY This information is strictly Confidential and protected under [place] law. [place] law prohibits you from making any further disclosure of this information unless further disclosure is expressly permitted by the written consent of the person to whom it pertains or is authorized by law. A general authorization for the release of medical or other information is not sufficient for this purpose. Hospital accepts no responsibility if the information is made available to any other person, INCLUDING THE PATIENT. Interpretation Summary * Name: AAKASH DUBON Study Date: 09/28/2017 01:54 PM BP: 128/73 mmHg * Patient Location: [facility]\S\N284\S\2 HR: 65 * : 1945 (M/d/yyyy) Gender: Male Height: 72 in * Age: 72 yrs Ethnicity: [place] Weight: 206 lb * Ordering Physician: Graham Friedman * Performed By: Vaishnavi Mccord RDCS * * Reason For Study: CEREBRAL ISCHEMIA/EMBOLUS * BSA: 2.2 m2 * -- Conclusions -- * There are regional wall motion abnormalities as specified. * The right ventricular systolic function is reduced as assessed by tricuspid annular plane systolic excursion (TAPSE) (TAPSE <1.6 cm). * Poor image quality, but no obvious cardiac source of embolism. Procedure Details * A complete two-dimensional transthoracic echocardiogram was performed (2D, M-mode, Doppler and color flow Doppler). * A saline contrast injection was performed to assess for cardiac shunting. * The injection was performed through an intravenous line in the right arm. * The attending nurse who injected the saline contrast was JOSE RAMON WONG RN. * A total of 20 cc of agitated saline was given. * A contrast injection of Definity was performed to improve assessment of LV function. * Contrast was injected into an intravenous site in the right arm. * One vial of Definity ultrasound contrast was diluted in normal saline to a total volume of 10 ml. A total of '2.5' ml of solution was administered during imaging. * Lot # [id number] of Definity utilized for procedure. * Expiration date 07/29. * The attending nurse who injected the contrast agent was JOSE RAMON WONG RN. Left Ventricle * The left ventricle is normal in size. * There is normal left ventricular wall thickness. * Ejection Fraction = 40-45%. * Left ventricular systolic function is mild to moderately reduced. * There are regional wall motion abnormalities as specified. * Basal septum is akinetic. There is moderate hypokinesis involving the posterior wall. Right Ventricle * The right ventricle is not well visualized. * The right ventricular systolic function is reduced as assessed by tricuspid annular plane systolic excursion (TAPSE) (TAPSE <1.6 cm). Atria * The left atrium is not well visualized. * Right atrium not well visualized. * Contrast injected but images were not adequate for exclusion of a PFO. Mitral Valve * The mitral valve is grossly normal. * Significant mitral regurgitation is absent. Tricuspid Valve * The tricuspid valve is not well visualized. Aortic Valve * The aortic valve is normal in structure and function. * No hemodynamically significant valvular aortic stenosis. * There is no significant aortic regurgitation. Pulmonic Valve * The pulmonic valve is not well visualized. Pericardium/Pleural * There is no pericardial effusion. MMode 2D Measurements and Calculations IVSd 1.2 cm IVSs 1.9 cm LVIDd 4.9 cm LVIDs 3.1 cm LVPWd 0.75 cm LVPWs 1.8 cm IVS/LVPW 1.6 FS 35.8 % EDV(Teich) 112.4 ml ESV(Teich) 39.1 ml EF(Teich) 65.2 % EDV(cubed) 117.0 ml ESV(cubed) 30.9 ml EF(cubed) 73.6 % % IVS thick 56.4 % % LVPW thick 137.0 % LV mass(C)d 170.5 grams LV mass(C)dI 79.0 grams/m\S\2 LV mass(C)s 237.2 grams LV mass(C)sI 109.9 grams/m\S\2 SV(Teich) 73.3 ml SI(Teich) 34.0 ml/m\S\2 SV(cubed) 86.1 ml SI(cubed) 39.9 ml/m\S\2 ACS 1.8 cm LA dimension 3.7 cm asc Aorta Diam 3.2 cm LVOT diam 1.5 cm LVOT area 1.8 cm\S\2 LVAd ap4 35.2 cm\S\2 LVLd ap4 7.8 cm EDV(MOD-sp4) 130.1 ml EDV(sp4-el) 135.1 ml LVAs ap4 19.4 cm\S\2 LVLs ap4 6.8 cm ESV(MOD-sp4) 46.5 ml ESV(sp4-el) 46.8 ml EF(MOD-sp4) 64.3 % EF(sp4-el) 65.4 % LVAd ap2 24.4 cm\S\2 LVLd ap2 7.0 cm EDV(MOD-sp2) 68.9 ml EDV(sp2-el) 72.9 ml LVAs ap2 14.1 cm\S\2 LVLs ap2 6.5 cm ESV(MOD-sp2) 24.9 ml ESV(sp2-el) 26.3 ml EF(MOD-sp2) 63.8 % EF(sp2-el) 64.0 % LVLd %diff -11.89 % EDV(MOD-bp) 99.6 ml LVLs %diff -6.01 % ESV(MOD-bp) 34.1 ml EF(MOD-bp) 65.8 % SV(MOD-sp4) 83.6 ml SI(MOD-sp4) 38.8 ml/m\S\2 SV(MOD-sp2) 44.0 ml SI(MOD-sp2) 20.4 ml/m\S\2 SV(MOD-bp) 65.5 ml SI(MOD-bp) 30.4 ml/m\S\2 SV(sp4-el) 88.3 ml SI(sp4-el) 40.9 ml/m\S\2 SV(sp2-el) 46.6 ml SI(sp2-el) 21.6 ml/m\S\2 Doppler Measurements and Calculations MV E max marianna 49.9 cm/sec MV A max marianna 69.7 cm/sec MV E/A 0.72 MV dec time 0.28 sec Ao V2 max 122.5 cm/sec Ao max PG 6.0 mmHg Ao max PG (full) 2.4 mmHg PRADEEP(V,A) 1.4 cm\S\2 PRADEEP(V,D) 1.4 cm\S\2 LV V1 max PG 3.6 mmHg LV V1 max 94.6 cm/sec PA V2 max 63.6 cm/sec PA max PG 1.6 mmHg
--- NOTE | 2017-09-28 16:24 | Discharge Instructions ---
Discharge Instructions Date of Service Sep 28, 2017. Admission Reason for Admission: Stroke Of Right Basal Ganglia Discharge Discharge Diagnosis / Problem: Stroke of Right Basal Ganglia Discharge Goals Goal(s): Decrease discomfort, Improve function Activity Recommendations Activity Limitations: resume your previous activity . Instructions / Follow-Up Instructions / Follow-Up Hold Metformin for 2 days. Followup with PCP in 1-2 weeks. Followup with Neurologist in 2-4 weeks near [facility]. Risk Factors for Stroke: You can reduce your chances of stroke by working with your medical provider to adopt a healthy lifestyle. Some specific ways to lower your chance of stroke are: * If you are a smoker, now is the time to stop smoking cigarettes * If you are diabetic, improve the control of your blood sugars * Avoid excessive amounts of alcohol * Control high blood pressure * Lose weight if you are overweight * Be sure to lead an active lifestyle * Eat a healthy diet low in salt, cholesterol and fat You should know about other risk factors for stroke that you are unable to control. These include: * Age 55 years or older * Male gender * Certain racial groups: , or / * Family History of Stroke, Mini stroke or Heart Attack * Sickle Cell Disease Follow Up: It is important for you to keep your follow up appointments with your medical provider. Current Hospital Diet Patient's current hospital diet: AHA Diet (Heart Healthy) Discharge Diet Recommended Diet: AHA Diet (Heart Healthy) Pending Studies Studies pending at discharge: no Medical Emergencies . Who to Call and When: Medical Emergencies: Call 911 immediately if you experience any of the following warning signs and symptoms of Stroke: * Sudden numbness or weakness of the face, arm or leg, especially on one side of the body * Sudden confusion, trouble speaking or understanding * Sudden trouble seeing in one or both eyes * Sudden trouble walking, dizziness, loss of balance or coordination * Sudden severe headache with no cause Do not delay calling 911 if you experience any warning signs or symptoms of a stroke. Delay in seeking medical attention may affect what treatments can be given to you. . Non-Emergent Contact Non-Emergency issues call your: Primary Care Provider Call Non-Emergent contact if: you have any medication questions . . "Provider Documentation" section prepared by Graham Friedman. . Stroke Core Measures Reason no t-PA for Stroke: Treatment not indicated Reason no antithrom by day 2: Treatment provided - N/A Reason no antithrom at D/C: Treatment provided - N/A Reason no statin at D/C: Treatment provided - N/A Reason no anticoag w/a fib: Treatment provided - N/A (No a. fib.)
[2017-09-28] MEDS ORDERED: MECL1TAB42 PO (16:56)
--- NOTE | 2017-10-04 12:43 | Discharge Summary ---
Discharge Summary Date of Service Sep 28, 2017. Discharge Summary Admission Date: Sep 28, 2017 at 10:30 Discharge Date: Sep 28, 2017 Discharge Disposition: Home Principal Diagnosis: Right acute ischmic infarct of basal ganglia Immunizations: Have You Had Influenza Vaccine: Yes History of Tetanus Vaccine?: Yes History of Pneumococcal: Yes History of Hepatitis B Vaccine: Yes Procedures: BRAIN WITHOUT CONTRAST HISTORY: Mental status change h/o cerebellar stroke/ worsening balance. TECHNIQUE: Multiplanar multisequence MRI of the brain was performed without the use of contrast. COMPARISON STUDY: None. FINDINGS: Old right frontal infarct. Small acute right periventricular infarct involving the right basal ganglia. Moderate chronic small vessel change throughout both cerebral hemispheres. Ventricular system is midline. Increased signal on T1 about the area of acute ischemic change may suggest a small petechial hemorrhagic component. IMPRESSION: 1. Old right frontal infarct. 2. Small right periventricular infarct with a small associated petechial hemorrhagic component. 3. Atrophy and chronic small vessel change of aging. Medication Reconciliation Continued Medications: Acarbose (Precose) 25 Mg Tab 25 MG PO AMPM Aspirin (Aspirin Ec) 81 Mg Tab 81 MG PO QAM Atorvastatin (Lipitor) 80 Mg Tab 80 MG PO QPM Clonazepam (Klonopin) 0.5 Mg Tab 0.5 MG PO QAM Clopidogrel (Plavix) 75 Mg Tab 75 MG PO QPM Dapagliflozin Propanediol (Farxiga) 10 Mg Tab 5 MG PO QPM Glimepiride (Glimepiride) 2 Mg Tab 2 MG PO AMPM Insulin Glargine (Basaglar Kwikpen) 100 Unit/Ml Inj 25 UNITS SC QPM Meclizine Hcl (Meclizine Hcl) 25 Mg Tab 1 TAB PO Q8 PRN for Dizziness or Vertigo for 10 Days, #30 TAB (This prescription has been renewed) Metformin Hcl (Glucophage) 1,000 Mg Tab 1000 MG PO BID Nitroglycerin (Nitrostat) 0.4 Mg Tab 0.4 MG UT PRN, BTL Discharge Exam Review of Systems Constitutional: No fever, No chills Eyes: No worsening of vision ENT: No hearing loss Respiratory: No cough Cardiovascular: No chest pain Abdomen: No pain Musculoskeletal: No joint pain Genitourinary - Male: No hematuria Neurologic: + vertigo Psychiatric: No depression symptoms Endocrine: No fatigue Hematologic / Lymphatic: No abnormal bleeding/bruising Integumentary: No rash Allergic / Immunologic: No environmental allergies Physical Exam General Appearance: WD/WN, no apparent distress Head: normocephalic Eyes: normal inspection, + pertinent finding (no nystagmus noted) ENT: normal ENT inspection, hearing grossly normal Neck: supple, no adenopathy Respiratory/Chest: chest non-tender, lungs clear, normal breath sounds Cardiovascular: regular rate, rhythm, no edema Abdomen/GI: normal bowel sounds, non tender, soft Back: normal inspection Extremities/Musculoskelatal: normal inspection Neurologic/Psych: drug worker II-XII nml as tested, alert, oriented x 3 Skin: normal color Lymphatic: no adenopathy Hospital Course Worsening vertigo and dizziness in a 72 yo male with history fo a stroke just 3 months ago diagnosed at an outside facility. Admit under obs to tele. Will obtain MRI of brain. If cerebellar stroke in past is correct, then this can likely explain his vertigo. Patient also describes symptoms where his they worsened with moving his head. Due to patient being a poor historian, unsure if patient really has worsening or not of his dizziness. It does sound like BPPV can be a strong possibility. Patient will likely benefit from following with Neurology as an outpatient. Due to claustrophobia, will order ativan prior to imaging. Neuro consult obtained after MRI showed small acute infarct of basal ganglia Appreciate Neuro Recommendations: This patient does not appear to have any neurologic deficits related to this acute abnormality. He presented in a somewhat nonspecific fashion with episodic dizziness, weakness , and diaphoresis and with a reported history of a recent cerebellar stroke. His imaging also reveals a chronic right frontal stroke. Cardioembolism is not completely excluded although there does not appear to be any evidence of atrial fibrillation. Continue with aspirin and Plavix which this patient has been taking long-term in light of his history of multivessel coronary artery disease. TTE was ordered which was negative for a bubble study Continue Lipitor This patient will need to follow up with his primary care physician for ongoing management of his diabetes mellitus and coronary artery disease. He will need to follow up with a neurologist when she returns home as well. Diabetes Mellitus II Will restart his insulin, hold oral meds. Consult glycemic control H/O Coronary artery disease. will restart his meds H/O stroke will restart his home meds. Total Time Spent: Greater than 30 minutes This includes examination of the patient, discharge planning, medication reconciliation, and communication with other providers. Discharge Instructions Please refer to the electronic Patient Visit Report (Discharge Instructions) for additional information. Follow-Up Hold Metformin for 2 days. Followup with PCP in 1-2 weeks. Followup with Neurologist in 2-4 weeks near [facility]. Additional Copies To Pete Camacho MD
== END 2017-09-28 17:45 | disposition home or self-care (01) | DRG 66 ==
LOC: C.EDB 12:40 → C.MED 17:21 → ENRESERV 17:57 → OBSVTOIN 09-28 10:30
PROVIDERS: ADMIT Internal Medicine Sports Medicine; ATTEND Internal Medicine Sports Medicine
DX: I63.9 Cerebral infarction, unspecified (principal); E11.9 Type 2 diabetes mellitus without complications; I25.10 Atherosclerotic heart disease of native coronary artery without angina pectoris; F40.240 Claustrophobia; Z86.73 Personal history of transient ischemic attack (TIA), and cerebral infarction without residual deficits; I25.2 Old myocardial infarction; Z79.02 Long term (current) use of antithrombotics/antiplatelets; Z79.4 Long term (current) use of insulin; Z79.82 Long term (current) use of aspirin; Z79.899 Other long term (current) drug therapy; Z82.49 Family history of ischemic heart disease and other diseases of the circulatory system